=== PATIENT | female | born 1975 | race Caucasian/White ===

== ENCOUNTER → 2024-01-27 13:49 | Outpatient (REF) | payer OTHER, SELFPAY | LOC: HWWDC 13:49 | PROVIDERS: ATTENDING PHYSICIAN Family Medicine | DX: Z12.31 Encounter for screening mammogram for malignant neoplasm of breast (principal) | CPT/HCPCS: 77063; 77067 ==

== ENCOUNTER → 2024-04-11 16:55 | Outpatient (REF) | payer OTHER, SELFPAY | LOC: PAVMRI 16:55 | PROVIDERS: ATTENDING PHYSICIAN Family Medicine | DX: R10.2 Pelvic and perineal pain (principal); K62.89 Other specified diseases of anus and rectum; M25.559 Pain in unspecified hip | CPT/HCPCS: 73721 ==

== ENCOUNTER → 2024-04-16 10:30 | Outpatient (REF) | payer OTHER, SELFPAY | LOC: MRI 3T 10:30 | PROVIDERS: ATTENDING PHYSICIAN Family Medicine; FAMILY PHYSICIAN Family Medicine | DX: R10.2 Pelvic and perineal pain (principal); K62.89 Other specified diseases of anus and rectum; M25.559 Pain in unspecified hip; G89.29 Other chronic pain; N92.6 Irregular menstruation, unspecified | CPT/HCPCS: 72197; A9575 ==

== ENCOUNTER → 2024-05-16 13:50 | Outpatient (REF) | payer OTHER, SELFPAY | LOC: RAD 13:50 | PROVIDERS: ATTENDING PHYSICIAN Family Medicine | DX: N94.89 Other specified conditions associated with female genital organs and menstrual cycle (principal); S76.319A Strain of muscle, fascia and tendon of the posterior muscle group at thigh level, unspecified thigh, initial encounter; L81.9 Disorder of pigmentation, unspecified; M79.674 Pain in right toe(s); M79.18 Myalgia, other site; F33.1 Major depressive disorder, recurrent, moderate | CPT/HCPCS: 93922; 93925; 93971 ==

== ENCOUNTER 2024-07-05 18:49 | Emergency (ER) | payer OTHER, SELFPAY ==
[2024-07-05 18:56] VITALS: BP 161/94
[2024-07-05 19:41] VITALS: BMI 26.6
--- NOTE | 2024-07-05 20:15 | ED.GENMED ---
History of Present Illness
General
Chief Complaint: Medication Reaction
Source: patient
Exam Limitations: none
Time Seen by Provider: 07/05/24 20:08
History of Present Illness
History of Present Illness:
See MDM
Past History
Past History
ED Past Medical History: Psychiatric
ED Past Surgical History: Orthopedic
Social History
Tobacco: Non-smoker
Alcohol: None
Living: with family
Phy Exam
Physical Exam
Physical Exam:
See MDM
Course
Orders/Labs/Results
Orders:
Orders
07/05/24 20:14
Lorazepam [Ativan] 1 mg PO NOW STA
07/05/24 20:23
COVID-19 Antigen Urgent
Source: Nasal Swab
Complete Blood Count/With Diff Urgent
Comprehensive Metabolic Panel Urgent
Influenza A+B Rapid Molecular Urgent
RAVI Source: Nasal Swab
Specimen Description:
Abnormal Lab Results
07/05/24
20:23
RBC 3.98 L 10^6/uL
(4.20-5.40)
MCH 31.7 H pg
(27.0-31.0)
Carbon Dioxide 32 H mmol/L
(22-30)
07/05/24 20:23
07/05/24 20:23
Vital Signs
Initial and Last Documented VS:
Initial Vital Signs
Temp Pulse Resp Pulse Ox
98.1 F 89 15 100
07/05/24 18:54 07/05/24 18:54 07/05/24 18:54 07/05/24 18:54
Last Documented Vital Signs
Temp Pulse Resp BP Pulse Ox
98.1 F 89 15 161/94 100
07/05/24 18:54 07/05/24 18:54 07/05/24 18:54 07/05/24 18:56 07/05/24 18:54
MDM/Problems Addressed
Differential Diagnosis Includes:
HPI and MDM Narrative:
48-year-old female presenting for evaluation of a rash. Over a week ago, her Lamictal dosage was increased from 200 mg to 300 mg. Prior to that, she had no issues with 200 mg daily for several months. Patient noted a mild rash her hips and her
shoulders and her face. She called her psychiatrist who indicated that this is likely not Flores-Rudy syndrome. Patient started to get nervous so she came in for evaluation. Her rash is improving without intervention. She denies sores in her
mouth or pain with urination. On exam, she has mild erythema to her shoulders and both hips. She complains of intermittent fevers as well. Will look for viral cause of her symptoms and will obtain basic blood work to rule out any evidence of
dress syndrome. Clinically, there is no suggestion of Flores-Rudy syndrome
Physical exam
General: Well appearing and non-toxic
HEENT: protecting airway. No oral lesions noted
Neck: appears supple
CV: No evidence of cyanosis
Resp: No accessory muscle use
Abd: Non-distended
Extremities: No deformities
Neuro: alert
Psych: Normal affect
Skin: Mild erythema to both shoulders and both hips
Problems Addressed including Acute and Chronic Conditions affecting care:
1. Rash
Acuity: acute
Prognosis: stable
Details: Unsure if this is related to increase of Lamictal. There is no evidence to suspect Flores-Rduy. Rash is improving without intervention
Updates
Patient remains well-appearing and nontoxic on reassessment. Blood work without clinically relevant abnormalities. Discussed calling the psychiatrist tomorrow but going back down to 200 mg
I did discuss with patient the possibility of an autoimmune disease and to have this discussion with PCP if symptoms persist
Differential Diagnosis (but not limited to): Viral rash, medication reaction, an autoimmune syndrome
Testing considered: Urinalysis but she denies symptoms
Drug therapy (if applicable): OTC meds, please see d/c instruction regarding Rx drugs
Amount and/or Complexity of Data Reviewed
Clinical info obtained from: Patient
External data reviewed: N/A
Labs I independently reviewed (but not limited to): White blood cell count normal, eosinophils within normal limit
Radiology: N/A
Pulse Ox: not hypoxic
EKG independently reviewed: N/A
Insulation Hoseman: N/A
Critical Care: N/A
Risk of Complication:
Social Determinants of health: Good social support
Discussed with other providers: N/A
Escalation of Care includes Admit/Obs: After being observed in the Emergency Department, pt stable for discharge.
Occasional wrong word or 'sound a like' substitutions may have occurred due to the inherent limitations of voice recognition software. Read the chart carefully and recognize, using context, where substitutions have occurred.
*Critical Care Note
Total Time (30-74mins, 75-104mins- exclusive of procedures): Not Applicable
ED Attending Note
-
Portions of this chart may have been created with voice recognition software.� Occasional wrong word or��sound alike� substitutions may have occurred due to the inherent limitations of voice recognition software.
Discharge Plan
Departure
Patient Disposition: Home (Routine Discharge)
Date of Disposition: 07/05/24
Time of Disposition: 21:16
Patient with high blood pressure during this ER visit?: Yes
Discharge Problem:
Rash
Instructions: BLOOD PRESSURE
Prescriptions:
No Action
lamotrigine [Lamictal] 200 mg Tablet
300 mg PO DAILY
dextroamphetamine-amphetamine [Adderall] 30 mg Tablet
30 mg PO DAILY
dextroamphetamine-amphetamine [Adderall] 15 mg Tablet
15 mg PO DAILY
bupropion HCl [Wellbutrin XL] 300 mg Tablet Extended Release 24 Hr
300 mg PO DAILY
Referrals:
Verónica Newell CRNP [Family Provider] -
Activity Restrictions/Additional Instructions:
Please return for any worsening symptoms.
You may return at any time if you have further concerns.
Please follow up with your psychiatrist at the first available appointment, preferably this week.
Please go back down to 200 mg to see if this helps.
Thank you for choosing [facility].
Interventions
Interventions:
*Risk Screen - Suicide Last Done: 07/05/24 18:54
*General Assessment Last Done: 07/05/24 18:54
*Neglect/Abuse Screening Last Done: 07/05/24 18:54
*ED COVID-19 Vaccine History Last Done: 07/05/24 18:54
ED-Skin Assessment Last Done: 07/05/24 19:42
ED- Pulmonary Assessment Last Done: 07/05/24 19:42
Discharge Date and Time
Print Language: FAROESE
[2024-07-05] MEDS: ATIVAN 1 MG PO (20:33)
[2024-07-05 20:43] LABS: % Basophils 0.4 % (0-2); % Eosinophils 3.2 % (0-6); % Immature Granulocytes 0.2 % (0-0.5); % Lymphocytes 39.6 % (20.5-51.1); % Monocytes 8.1 % (1.7-9.3); % Neutrophils 48.5 % (42.2-75.2); Absolute Eosinophils 0.2 10^3/uL (0-0.7); Absolute Monocytes 0.4 10^3/uL (0.1-0.6); Absolute Neutrophils 2.4 10^3/uL (1.4-6.5); Hemoglobin 12.6 g/dL (12.0-16.0); Mean Corp Hgb Conc. 34.1 g/dL (33.0-37.0); Mean Corpuscular Hgb 31.7 pg (27.0-31.0); Mean Platelet Volume 8.5 fL (7.4-10.4); Nucleated Red Blood Cells % 0 %; Platelet Count 360 10^3/uL (130-400); Red Blood Cell Count 3.98 10^6/uL (4.20-5.40); Red Cell Dist. Width 13.4 % (11.5-14.5); White Blood Cell Count 4.9 10^3/uL (4.8-10.8)
[2024-07-05 20:51] LABS: ALT (SGPT) 21 U/L (0-35); AST (SGOT) 20 U/L (14-36); Albumin 4.8 g/dl (3.5-5.0); Alkaline Phosphatase 65 U/L (38-126); Blood Urea Nitrogen 17 mg/dl (7-17); Calcium 9.5 mg/dl (8.4-10.2); Carbon Dioxide 32 mmol/L (22-30); Chloride 101 mmol/L (98-107); Estimated Creatinine Clearance 83 ml/min; Glucose 96 mg/dl (70-99); Potassium 4.1 mmol/L (3.5-5.1); Sodium 140 mmol/L (135-145); Total Bilirubin 0.3 mg/dl (0.2-1.3); Total Protein 7.1 g/dl (6.3-8.2); eGFR > 60.00
[2024-07-05 20:53] LABS: COVID-19 Antigen Negative (Negative)
== END 2024-07-05 21:47 | disposition home or self-care (01) ==
LOC: EMR 18:49
PROVIDERS: EMERGENCY PHYSICIAN Student in an Organized Health Care Education/Training Program; FAMILY PHYSICIAN Nurse Practitioner Family
DX: R21 Rash and other nonspecific skin eruption (principal)
CPT/HCPCS: 99283; 80053; 85025; 87502; 87811

== ENCOUNTER 2025-01-06 02:21 | Emergency (ER) | payer OTHER, SELFPAY ==
[2025-01-06 02:37] VITALS: BP 130/90
[2025-01-06 03:27] VITALS: BP 167/89
[2025-01-06 03:28] LABS: Hematocrit 34.3 % (37.0-47.0); Hemoglobin 11.9 g/dL (12.0-16.0); Mean Corp Hgb Conc. 34.7 g/dL (33.0-37.0); Mean Corpuscular Volume 91.7 fL (81.0-99.0); Nucleated Red Blood Cells % 0 %; Platelet Count 307 10^3/uL (130-400); Red Cell Dist. Width 12.6 % (11.5-14.5)
[2025-01-06] MEDS: ZOFRAN 4 MG IV (03:54)
[2025-01-06] MEDS: MORPHINE SULFATE 4 MG IV (03:54)
[2025-01-06] MEDS: NSS 1000 IV (03:54)
[2025-01-06 03:57] VITALS: BMI 29.7
[2025-01-06 03:58] LABS: Blood Urea Nitrogen 21 mg/dl (7-17); Calcium 9.6 mg/dl (8.4-10.2); Carbon Dioxide 25 mmol/L (22-30); Chloride 104 mmol/L (98-107); Estimated Creatinine Clearance 113 ml/min; Glucose 112 mg/dl (70-99); Lipase 63 U/L (23-300); Sodium 136 mmol/L (135-145); eGFR > 60.00
[2025-01-06 04:00] VITALS: BP 173/96
--- NOTE | 2025-01-06 05:43 | EDRN ---
Patient reports feeling much better, aware she is waiting to go to CT
[2025-01-06 07:00] VITALS: BP 132/75
--- NOTE | 2025-01-06 07:30 | ED.GENMED ---
History of Present Illness
General
Chief Complaint: Abdominal Pain
Source: patient
Time Seen by Provider: 01/06/25 07:05
History of Present Illness
History of Present Illness:
49-year-old female with past medical history of anxiety and depression presenting to the emergency department for evaluation of generalized abdominal pain that started yesterday, overnight localized to the right lower quadrant initially described to
be a 7 or 8 out of 10, currently a 2 or 3 out of 10 accompanied with nausea (nausea now fully resolved) but no other symptoms. Patient did take an Advil prior to going to bed last night but awoke an hour later with the pain significantly worse
which is what prompted her to come to the ER. She denies any history of similar. No other symptoms including urinary frequency/urgency/dysuria or hematuria, bowel changes, back or flank pain, vaginal bleeding or discharge. Patient denies any
history of similar. Surgical history was noted for previous C-sections. Social history noncontributory.
Past History
Past History
ED Past Medical History: Psychiatric
ED Past Surgical History: and Orthopedic
Social History
Tobacco: Non-smoker
Alcohol: None
Drug: None
Personal:
Living: with family
Review of Systems
Review of Systems
All Other Systems: ROS reviewed and negative except as documented in HPI and ROS
Phy Exam
Physical Exam
Physical Exam:
GENERAL: Alert , in no apparent distress
EYE: clear conjunctiva b/l
HEAD: NCAT
ENT: mmm.
CARDIAC: Regular rate and rhythm .
LUNGS: Clear breath sounds bilaterally, no acute respiratory distress, no wheezes/rales/rhonchi
ABDOMEN: Soft, Mild tenderness within the right lower quadrant , no r/g, no cvat, negative Garcia sign, no tenderness at McBurney's point
NEUROLOGICAL: Alert and oriented
SKIN: Warm and dry, skin intact.
MUSCULOSKELETAL: well perfused.
PSYCH: Normal and appropriate interaction.
Scores
Heart Failure Risk
Heart Failure Risk Score: Not Applicable
Heart Score for Chest Pain Patients
STEMI patient?: Not applicable
Withdrawal Assessment of Alcohol
Withdrawal Assessment Completed?: Not applicable
Course
Orders/Labs/Results
Orders:
Orders
01/06/25 02:42
IV Insert/Care/Rem.- Treatment PRN
01/06/25 03:14
Basic Metabolic Panel Urgent
Complete Blood Count/With Diff Urgent
HCG, Urine Qualitative Screen Urgent
Date Specimen was Collected: 01/06/25
Time Specimen was Collected: 02:42
Comment: ADD ON PER [id number]
Lipase Urgent
Urinalysis Reflex To Culture Urgent
Date Specimen was Collected: 01/06/25
Time Specimen was Collected: 02:42
Urine Microscopic Reflex Cult Urgent
Urine Culture Urgent
RAVI Source: U
Specimen Description:
Date Specimen was Collected: 01/06/25
Time Specimen was Collected: 02:42
01/06/25 03:48
CT Abd/pelvis W Iv Cont Urgent
Comment:
Reason For Exam: abd pain
Morphine Sulfate 4 mg .ROUTE .STK-MED ONE
Ondansetron Injectable [Zofran] 4 mg .ROUTE .STK-MED ONE
01/06/25 03:49
Morphine Sulfate 4 mg IV NOW STA
01/06/25 03:50
Ondansetron Injectable [Zofran] 4 mg IV NOW STA
01/06/25 03:51
0.9% Sodium Chloride 1000 ml [Nss] 1,000 ml IV BOLUS
01/06/25 04:14
Test Result ONCE
01/06/25 06:58
Add On- LAB Stat
Tests Added?: hcg qual.
01/06/25 08:00
Add On- LAB Stat
Tests Added?: HCG QUAL
Abnormal Lab Results
01/06/25
03:14
WBC 11.1 H 10^3/uL
(4.8-10.8)
RBC 3.74 L 10^6/uL
(4.20-5.40)
Hgb 11.9 L g/dL
(12.0-16.0)
Hct 34.3 L %
(37.0-47.0)
MCH 31.8 H pg
(27.0-31.0)
Absolute Neuts (auto) 8.5 H 10^3/uL
(1.4-6.5)
Absolute Monos (auto) 0.7 H 10^3/uL
(0.1-0.6)
Neutrophils % 76.4 H %
(42.2-75.2)
Lymphocytes % 14.6 L %
(20.5-51.1)
BUN 21 H mg/dl
(7-17)
Glucose 112 H mg/dl
(70-99)
Ur Occult Blood Reflex 1+ A
(Negative)
Leukocyte Esterase Rfl 3+ A
(Negative)
Urine WBC (Reflex) 11-15 A /HPF
(0-5)
Urine Bacteria (Reflex) Moderate A
(Negative)
Urine Albumin (Reflex) 1+ A
(Neg - Trace)
01/06/25 03:14
01/06/25 03:14
Vital Signs
Initial and Last Documented VS:
Initial Vital Signs
Temp Pulse Resp BP Pulse Ox
97.9 F 69 20 130/90 100
01/06/25 02:37 01/06/25 02:37 01/06/25 02:37 01/06/25 02:37 01/06/25 02:37
Last Documented Vital Signs
Temp Pulse Resp BP Pulse Ox
97.9 F 49 12 132/75 98
01/06/25 02:37 01/06/25 09:00 01/06/25 09:00 01/06/25 07:00 01/06/25 09:00
MDM/Problems Addressed
Differential Diagnosis Includes:
Appendicitis
Renal/ureteral colic
Colitis
Diverticulitis
Pancreatitis
Ovarian cyst/ovarian torsion
MDM/Problems Addressed:
49-year-old female presenting to the ER for evaluation of generalized abdominal pain yesterday, overnight localized to the right lower quadrant. Pain and nausea both improved at time of my exam, patient declining anything for symptoms. Labs were
initiated on arrival which do show a slight leukocytosis. Chemistry otherwise unremarkable. Awaiting urinalysis. CT scan ordered. Disposition pending.
*Radiology
Radiology exam reviewed: radiology read reviewed
*Pulse Oximetry
SaO2: 100
Oxygen Mode of Delivery: Room air
Patient hypoxic: no
*Environmental Geologist Interpretation
Rate: normal
Heart Rate: 74
Rhythm: sinus
*Critical Care Note
Total Time (30-74mins, 75-104mins- exclusive of procedures): Not Applicable
Patient Management
Escalation/DeEscalation of care consider admission/obs:
Patient CT scan shows a 3 mm calculus at the right UVJ as well as a suspected 2 mm calculus at the proximal right ureter. Patient's pain remained well-controlled and ultimately she wishes to be discharged home. Will send home with prescriptions
for Zofran, naproxen and Flomax. Information for urology provided. Patient aware of return precautions to the ER.
ED Attending Note
-
Portions of this chart may have been created with voice recognition software.� Occasional wrong word or��sound alike� substitutions may have occurred due to the inherent limitations of voice recognition software.
Discharge Plan
Departure
Patient Disposition: Home (Routine Discharge)
Date of Disposition: 01/06/25
Time of Disposition: 09:44
Patient with high blood pressure during this ER visit?: Yes
Discharge Problem:
Ureteral colic, Kidney stone
Instructions: Kidney Stones (DC)
Prescriptions:
New
ondansetron 4 mg tablet,disintegrating
4 mg PO TIDPRN PRN (Reason: nausea/vomiting) Qty: 10 0RF
tamsulosin [Flomax] 0.4 mg capsule
0.4 mg PO DAILY Qty: 10 0RF
naproxen 500 mg tablet
500 mg PO BID PRN (Reason: Pain) Qty: 15 0RF
No Action
lamotrigine [Lamictal] 200 mg Tablet
300 mg PO DAILY
dextroamphetamine-amphetamine [Adderall] 30 mg Tablet
30 mg PO DAILY
dextroamphetamine-amphetamine [Adderall] 15 mg Tablet
15 mg PO DAILY
bupropion HCl [Wellbutrin XL] 300 mg Tablet Extended Release 24 Hr
300 mg PO DAILY
Referrals:
Breezy Pagan MD [Active, Urology]
UNKNOWN,NO INTERVIEW [Family Provider]
Interventions
Interventions:
*Risk Screen - Suicide Last Done: 01/06/25 02:37
*General Assessment Last Done: 01/06/25 02:37
*Neglect/Abuse Screening Last Done: 01/06/25 02:37
*ED- Fall Risk Assessment Last Done: 01/06/25 02:37
*ED COVID-19 Vaccine History Last Done: 01/06/25 02:37
*ED Influenza Vaccine History Last Done: 01/06/25 02:37
*Nursing Disposition Last Done: 01/06/25 10:57
BP-Doupdz-Xgkdiymtvt Assessment Last Done: 01/06/25 03:33
Discharge Date and Time
Discharge Date/Time: 01/06/25 11:00
Print Language: MAORI
[2025-01-06 08:04] LABS: Urine Character Slightly Cloudy (Clear)
[2025-01-06 08:29] LABS: Urine Red Blood Cell 0-2 /HPF (0-2)
[2025-01-06 08:59] LABS: HCG, Urine Qualitative Screen Negative
== END 2025-01-06 11:00 | disposition home or self-care (01) ==
LOC: EMR 02:21
PROVIDERS: Student in an Organized Health Care Education/Training Program; EMERGENCY PHYSICIAN Student in an Organized Health Care Education/Training Program
DX: N13.2 Hydronephrosis with renal and ureteral calculous obstruction (principal)
CPT/HCPCS: 96374; 96375; 96361; 99284; 74177; 80048; 81003; 81015; 81025; 83690; 85025; 87086; 87147; Q9967

== ENCOUNTER 2025-01-06 15:16 | Emergency (ER) | payer OTHER, SELFPAY ==
[2025-01-06 15:19] VITALS: BP 169/95
[2025-01-06] MEDS: NSS 1000 IV (18:27)
[2025-01-06] MEDS: ZOFRAN 4 MG IV (18:29)
[2025-01-06] MEDS: TORADOL 15 MG IV ×2 (18:29→23:29)
[2025-01-06 18:38] VITALS: BP 175/88
[2025-01-06 18:39] VITALS: BMI 29.4
[2025-01-06 18:44] LABS: Hematocrit 37.8 % (37.0-47.0); Hemoglobin 12.9 g/dL (12.0-16.0); Mean Corp Hgb Conc. 34.1 g/dL (33.0-37.0); Mean Corpuscular Volume 93.6 fL (81.0-99.0); Nucleated Red Blood Cells % 0 %; Platelet Count 312 10^3/uL (130-400); Red Cell Dist. Width 12.6 % (11.5-14.5)
[2025-01-06 19:23] VITALS: BP 176/94
[2025-01-06 19:25] LABS: Blood Urea Nitrogen 14 mg/dl (7-17); Calcium 9.3 mg/dl (8.4-10.2); Carbon Dioxide 26 mmol/L (22-30); Chloride 102 mmol/L (98-107); Estimated Creatinine Clearance 113 ml/min; Glucose 130 mg/dl (70-99); Potassium 3.9 mmol/L (3.5-5.1); Sodium 137 mmol/L (135-145); eGFR > 60.00
[2025-01-06 19:40] LABS: Urine Character Clear (Clear)
[2025-01-06 19:46] LABS: Urine Red Blood Cell 0-2 /HPF (0-2)
[2025-01-06 20:00] VITALS: BP 164/84
--- NOTE | 2025-01-06 21:39 | ED.GENMED ---
History of Present Illness
General
Chief Complaint: Flank Pain
Source: patient
Exam Limitations: none
Time Seen by Provider: 01/06/25 17:48
Nursing documentation reviewed up to this point in time: agreed with
History of Present Illness
History of Present Illness:
39-year-old female presenting to the emergency department today with concerns of right flank pain. Diagnosed with kidney stones earlier in the day reports the pain has been ongoing was brought back in for reassessment. Denies any fevers no trouble
urinating.
Past History
Past History
ED Past Medical History: Psychiatric
ED Past Surgical History: and Orthopedic
Social History
Tobacco: Non-smoker
Alcohol: None
Drug: None
Personal:
Living: with family
Review of Systems
Review of Systems
Allergies reviewed?: Yes
All Other Systems: ROS reviewed and negative except as documented in HPI and ROS
Phy Exam
Physical Exam
Physical Exam:
GENERAL: Alert , in no apparent distress
EYE: pupils equal and reactive
NECK: Supple, no significant adenopathy.
ENT: o/p clr, mmm.
CARDIAC: Regular rate and rhythm .
LUNGS: Clear breath sounds bilaterally, no acute respiratory distress, no wheezes/rales/rhonchi
ABDOMEN: Soft, without focal tenderness, no r/g, no cvat
NEUROLOGICAL: Alert and oriented, no focal neuro deficits
SKIN: Warm and dry, skin intact.
MUSCULOSKELETAL: No edema, well perfused.
PSYCH: Normal and appropriate interaction.
Course
Orders/Labs/Results
Orders:
Orders
01/06/25 17:57
Ketorolac [Toradol] 15 mg IV NOW STA
Ondansetron Injectable [Zofran] 4 mg IV NOW STA
01/06/25 17:58
0.9% Sodium Chloride 1000 ml [Nss] 1,000 ml IV BOLUS
01/06/25 18:33
BMP [Basic Metabolic Panel] Urgent
CBC/With Diff [Complete Blood Count/With Diff] Urgent
01/06/25 19:30
Urinalysis Reflex To Culture Urgent
Date Specimen was Collected: 01/06/25
Time Specimen was Collected: 18:15
Urine Microscopic Reflex Cult Urgent
01/06/25 21:34
Famotidine [Pepcid] 20 mg IV NOW STA
Mag Hydrox/Al Hydrox/Simeth [Maalox] 30 ml Phenobarb/Hyoscy/Atropine/Scop [] 10 ml PO NOW
01/06/25 21:56
Mag Hydrox/Al Hydrox/Simeth [Maalox] 30 ml .ROUTE .STK-MED ONE
Phenobarb/Hyoscy/Atropine/Scop [] 10 ml .ROUTE .STK-MED ONE
Abnormal Lab Results
01/06/25 01/06/25
18:33 19:30
WBC 13.4 H 10^3/uL
(4.8-10.8)
RBC 4.04 L 10^6/uL
(4.20-5.40)
MCH 31.9 H pg
(27.0-31.0)
Abs Immat Gran (auto) 0.1 H 10^3/uL
(0-0.05)
Absolute Neuts (auto) 11.7 H 10^3/uL
(1.4-6.5)
Absolute Lymphs (auto) 0.9 L 10^3/uL
(1.2-3.4)
Absolute Monos (auto) 0.7 H 10^3/uL
(0.1-0.6)
Neutrophils % 87.3 H %
(42.2-75.2)
Lymphocytes % 6.8 L %
(20.5-51.1)
Glucose 130 H mg/dl
(70-99)
Urine Ketones 3+ A
(Negative)
Ur Occult Blood Reflex 1+ A
(Negative)
Urine Bacteria (Reflex) Few A
(Negative)
Urine Albumin (Reflex) 1+ A
(Neg - Trace)
01/06/25 18:33
01/06/25 18:33
Vital Signs
Initial and Last Documented VS:
Initial Vital Signs
Temp Pulse Resp BP Pulse Ox
98.8 F 62 17 169/95 100
01/06/25 15:19 01/06/25 15:19 01/06/25 15:19 01/06/25 15:19 01/06/25 15:19
Last Documented Vital Signs
Temp Pulse Resp BP Pulse Ox
97.2 F 51 14 152/62 100
01/06/25 18:38 01/06/25 22:00 01/06/25 22:00 01/06/25 22:00 01/06/25 22:00
MDM/Problems Addressed
MDM/Problems Addressed:
49-year-old female presenting to the emergency department today with concerns of ongoing discomfort in setting of recently diagnosed kidney stone earlier in the day. Hypertensive on arrival otherwise vital signs are normal. Slight white count of
13.4 otherwise no signs of renal dysfunction and no evidence of infection on urinalysis. Patient able to tolerate by mouth here in no significant pain. She is not vomiting. Patient asleep through majority of ER stay. Symptoms well-controlled no
evidence of emergent pathology advised to close the patient follow-up. Return precautions given.
*Pulse Oximetry
SaO2: 100
Oxygen Mode of Delivery: Room air
Patient hypoxic: no (100)
*Critical Care Note
Total Time (30-74mins, 75-104mins- exclusive of procedures): Not Applicable
ED Attending Note
-
Portions of this chart may have been created with voice recognition software.� Occasional wrong word or��sound alike� substitutions may have occurred due to the inherent limitations of voice recognition software.
Discharge Plan
Departure
Patient Disposition: Home (Routine Discharge)
Date of Disposition: 01/06/25
Time of Disposition: 22:50
Patient with high blood pressure during this ER visit?: No
Condition: Good
Covid-19: Not Applicable
Discharge Problem:
Kidney stone
Instructions: Kidney Stones (DC)
Prescriptions:
No Action
dextroamphetamine-amphetamine [Adderall] 30 mg Tablet
30 mg PO NOON
dextroamphetamine-amphetamine [Adderall] 15 mg Tablet
15 mg PO .QAM
bupropion HCl [Wellbutrin XL] 300 mg Tablet Extended Release 24 Hr
300 mg PO DAILY
ondansetron 4 mg tablet,disintegrating
4 mg PO TIDPRN PRN (Reason: nausea/vomiting) Qty: 10 0RF
tamsulosin [Flomax] 0.4 mg capsule
0.4 mg PO DAILY Qty: 10 0RF
naproxen 500 mg tablet
500 mg PO BID PRN (Reason: Pain) Qty: 15 0RF
lamotrigine [Lamictal] 200 mg Tablet
200 mg PO DAILY
ibuprofen [Advil] 200 mg Tablet
600 mg PO DAILY
Referrals:
Verónica Newell CRNP [Family Provider, Internal Medicine]
Activity Restrictions/Additional Instructions:
You came to the emergency department today with concerns of ongoing symptoms related to kidney stone. Here your reassuring assessment. Please take the prescribed medications and include famotidine to help protect the stomach lining while taking
the pain medication. Otherwise follow-up closely with urology. Return for any worsening, new or concerning symptoms.
Interventions
Interventions:
*Risk Screen - Suicide Last Done: 01/06/25 15:20
*General Assessment Last Done: 01/06/25 15:20
*Neglect/Abuse Screening Last Done: 01/06/25 15:20
*ED- Fall Risk Assessment Last Done: 01/06/25 19:30
*ED COVID-19 Vaccine History Last Done: 01/06/25 15:20
*ED Influenza Vaccine History Last Done: 01/06/25 15:20
AK-Vrdhax-Tzlnxceudw Assessment Last Done: 01/06/25 19:30
ED-Female Genitourinary Assessment Last Done: 01/06/25 19:00
Discharge Date and Time
Print Language: PORTUGUESE
[2025-01-06 22:00] VITALS: BP 152/62
[2025-01-06] MEDS: MAALOX 40 PO (22:01)
[2025-01-06] MEDS: PEPCID 20 MG IV (22:01)
[2025-01-06 23:33] VITALS: BP 187/93
== END 2025-01-06 23:42 | disposition home or self-care (01) ==
LOC: EMR 15:16
PROVIDERS: Physician Assistant; EMERGENCY PHYSICIAN Emergency Medicine; FAMILY PHYSICIAN Nurse Practitioner Family
DX: N20.0 Calculus of kidney (principal)
CPT/HCPCS: 80048; 81003; 81015; 85025; 96361; 96374; 96375; 96376; 99284